=== PATIENT | female | born 1965 | race Caucasian/White ===

== ENCOUNTER 2020-10-13 08:46 | Emergency (ER) | payer SELFPAY ==
[2020-10-13 08:57] VITALS: BP 145/96; PULSE 89; RESP 18; TEMP 36.7; O2SAT 94; BMI 20.5
--- NOTE | 2020-10-13 08:57 | ED_ITS ---
HPI - General Adult General Chief complaint: Psychiatric Symptoms Stated complaint: Brought by [employer], mental health issues Time Seen by Provider: 10/13/20 08:56 Source: patient and police Mode of arrival: other (Police) Limitations: altered mental status History of Present Illness HPI narrative: Patient is a 54-year-old female who according to the police is relatively new to our local area. She is homeless. Was sleeping outside near a dog park when the received multiple calls this morning on her yelling and scre aming. They also stated that they received a call yesterday on her was very similar to today. The local police contacted the [employer] imbedded director of social work who came and saw the patient who deemed that she was gravely disabled and she was brought here to the emergency department. The director of social work stated that the patient did express that she was not suicidal and not homicidal. The patient told the director of social work that she was here in the local area in order to talk to the certified master safe technician about getting a boat. Her identification list her as having an aura can address in the patient does state she lived there for approximately 6 years however she does ?wonder ?she states that this morning she was yelling at someone because this individual ?let her dog shit on my stuff and did not clean it up. Review of Systems Constitutional Constitutional: Denies fever(s) Cardiovascular Cardiovascular: Denies chest pain and Denies dyspnea Respiratory Respiratory: Denies dyspnea Gastrointestinal Gastrointestinal: Denies abdominal pain Musculoskeletal Musculoskeletal: Reports arthralgias Integumentary/Breasts Skin/Breast: Denies rash Patient History Medical History History of fracture of right ankle Social History Smoking Status: Never smoker Exam Initial Vital Signs Initial Vital Signs: Vital Signs Temperature 98.1 F 10/13/20 08:57 Pulse Rate 89 10/13/20 08:57 Respiratory Rate 18 10/13/20 08:57 Blood Pressure 145/96 H 10/13/20 08:57 Pulse Oximetry 94 10/13/20 08:57 Const General: anxious, disheveled, No ill appearing and No intoxicated appearing Limitations: altered mental status HENMT Head: normal to inspection and normocephalic Eyes General: appearance normal, both eyes and all related structures Resp Effort & Inspection: normal respiratory effort Cardio Rate: regular rate Skin Lesions: no lesions Rashes: no rashes Neuro General: patient alert, patient awake and moves all extremities Gait: normal gait Extrem General: normal to inspection Psych Appearance: disheveled Speech and Movement: agitated, pressured speech, restless and speech not slurred Mood: anxious mood, manic mood and irritable mood Affect: irritable affect Attitude: cooperative and guarded Thought Process: flight of ideas, illogical and tangential Thought Content: suicidality Course Orders Ordered: ED Orders 10/13/20 08:58 Consult to [facility] - Credit Card Associate Stat EKG-12 Lead Stat 10/13/20 09:00 Urinalysis and Microscopic Stat Urine Drug Screen, Rapid Stat 10/13/20 09:01 Test Urine Stat 10/13/20 09:54 Acetaminophen Stat Complete Blood Count AUTO DIFF Stat Comprehensive Metabolic Panel Stat Ethanol (ETOH) Stat Lipase Stat Salicylate Stat Thyroid Stimulating Hormone Stat 10/13/20 10:30 COVID19 -Nasal swab/Pre-Proc Stat Vital Signs Vital signs: Vital Signs - 8 hr 10/13/20 08:57 Temperature 98.1 F Pulse Rate 89 Respiratory Rate 18 Blood Pressure 145/96 H Pulse Oximetry 94 Medical Decision Making Lab Data Result diagrams: 10/13/20 09:54 10/13/20 09:54 Labs: Lab Results 10/13/20 10/13/20 10/13/20 Range/Units 09:00 09:00 09:01 WBC (4.5-11.0) X10^3/uL RBC (4.0-5.2) X10^6/uL Hgb (12.0-16.0) g/dL Hct (36-46) % MCV (80-100) fL MCH (26-34) PG MCHC (30-36) % RDW (11.6-14.8) % Plt Count (150-400) X10^3/uL Neut % (Auto) (50-75) % Lymph % (Auto) (25-40) % [place] % (Auto) (3-14) % Eos % (Auto) (2-4) % Baso % (Auto) (0-2) % Neut # (Auto) (2724-5015) /uL Lymph # (Auto) (5860-2203) /uL [place] # (Auto) (0-900) /uL Eos # (Auto) (0-450) /uL Baso # (Auto) (0-100) /uL Sodium (137-145) mmol/L Potassium (3.4-5.1) mmol/L Chloride (98-107) mmol/L Carbon Dioxide (22-32) mmol/L BUN (7-17) mg/dL Creatinine (0.52-1.04) mg/dL Estimated GFR (>60) mL/min BUN/Creatinine Ratio (6-22) Glucose (70-100) mg/dL Calcium (8.4-10.2) mg/dL Total Bilirubin (0.2-1.3) mg/dL AST (14-36) IU/L ALT (<35) IU/L Alkaline Phosphatase (38-126) U/L Total Protein (6.3-8.2) g/dL Albumin (3.5-5.0) g/dL Globulin (1.7-4.1) g/dL Albumin/Globulin Ratio (1.0-2.8) Lipase (23-300) U/L TSH (0.47-4.68) uIU/mL Urine Color Yellow Urine Appearance Slightly cloudy Urine pH 7.0 (4.5-8.0) Ur Specific [place] 1.015 (1.000-1.035) Urine Protein Negative (Negative) Urine Glucose (UA) Negative (Negative) g/dL Urine Ketones Negative (NEGATIVE) Urine Occult Blood Negative (Negative) Urine Nitrate Negative (Negative) Urine Bilirubin Negative (NEGATIVE) Urine Urobilinogen 0.2 (0.2) E.U./dL Ur Leukocyte Esterase 2+ H (NEGATIVE) Urine RBC None seen (0-5/HPF) Urine WBC 1-5/hpf (0-5/HPF) Ur Squamous Epith Cells 10-30 /hpf H (0-5/HPF) Amorphous Sediment 3+ Urine Bacteria Moderate (10-30) H (None) Ur Culture Indicated? Cult not indicated Urine Test Negative (Negative) Salicylates (<20) mg/dL U Opiates 300ng/mL cut Negative (Negative) Ur Oxycodone Screen Negative (Negative) Urine Methadone Screen Negative (Negative) Acetaminophen (10-30) ug/mL Ur Barbiturates Screen Positive H (Negative) U Tricyclic Antidepress Negative (Negative) Ur Phencyclidine Scrn Negative (Negative) Ur Amphetamines Screen Negative (Negative) U Methamphetamines Scrn Negative (Negative) Ur MDMA Scrn (Ecstasy) Negative (Negative) U Benzodiazepines Scrn Negative (Negative) Urine Cocaine Screen Negative (Negative) U Marijuana (THC) Screen Positive H (Negative) Ethyl Alcohol ( - 10) mg/dL SARS-CoV-2 (PCR) (Negative) 10/13/20 10/13/20 10/13/20 Range/Units 09:54 09:54 09:54 WBC 5.0 (4.5-11.0) X10^3/uL RBC 4.64 (4.0-5.2) X10^6/uL Hgb 14.8 (12.0-16.0) g/dL Hct 43.3 (36-46) % MCV 93.4 (80-100) fL MCH 32.0 (26-34) PG MCHC 34.2 (30-36) % RDW 13.9 (11.6-14.8) % Plt Count 252 (150-400) X10^3/uL Neut % (Auto) 60.0 (50-75) % Lymph % (Auto) 25.1 (25-40) % [place] % (Auto) 12.3 (3-14) % Eos % (Auto) 1.3 L (2-4) % Baso % (Auto) 1.3 (0-2) % Neut # (Auto) 3000 (9168-9648) /uL Lymph # (Auto) 1300 (0860-8979) /uL [place] # (Auto) 600 (0-900) /uL Eos # (Auto) 100 (0-450) /uL Baso # (Auto) 100 (0-100) /uL Sodium 137 (137-145) mmol/L Potassium 4.1 (3.4-5.1) mmol/L Chloride 103 (98-107) mmol/L Carbon Dioxide 29 (22-32) mmol/L BUN 4 L (7-17) mg/dL Creatinine 0.53 (0.52-1.04) mg/dL Estimated GFR > 60.0 (>60) mL/min BUN/Creatinine Ratio 7.5 (6-22) Glucose 121 H (70-100) mg/dL Calcium 9.5 (8.4-10.2) mg/dL Total Bilirubin 0.5 (0.2-1.3) mg/dL AST 38 H (14-36) IU/L ALT 31 (<35) IU/L Alkaline Phosphatase 67 (38-126) U/L Total Protein 7.9 (6.3-8.2) g/dL Albumin 4.5 (3.5-5.0) g/dL Globulin 3.4 (1.7-4.1) g/dL Albumin/Globulin Ratio 1.3 (1.0-2.8) Lipase 47 (23-300) U/L TSH (0.47-4.68) uIU/mL Urine Color Urine Appearance Urine pH (4.5-8.0) Ur Specific [place] (1.000-1.035) Urine Protein (Negative) Urine Glucose (UA) (Negative) g/dL Urine Ketones (NEGATIVE) Urine Occult Blood (Negative) Urine Nitrate (Negative) Urine Bilirubin (NEGATIVE) Urine Urobilinogen (0.2) E.U./dL Ur Leukocyte Esterase (NEGATIVE) Urine RBC (0-5/HPF) Urine WBC (0-5/HPF) Ur Squamous Epith Cells (0-5/HPF) Amorphous Sediment Urine Bacteria (None) Ur Culture Indicated? Urine Test (Negative) Salicylates < 1.0 (<20) mg/dL U Opiates 300ng/mL cut (Negative) Ur Oxycodone Screen (Negative) Urine Methadone Screen (Negative) Acetaminophen < 10 L (10-30) ug/mL Ur Barbiturates Screen (Negative) U Tricyclic Antidepress (Negative) Ur Phencyclidine Scrn (Negative) Ur Amphetamines Screen (Negative) U Methamphetamines Scrn (Negative) Ur MDMA Scrn (Ecstasy) (Negative) U Benzodiazepines Scrn (Negative) Urine Cocaine Screen (Negative) U Marijuana (THC) Screen (Negative) Ethyl Alcohol < 10 ( - 10) mg/dL SARS-CoV-2 (PCR) (Negative) 10/13/20 10/13/20 Range/Units 09:54 10:30 WBC (4.5-11.0) X10^3/uL RBC (4.0-5.2) X10^6/uL Hgb (12.0-16.0) g/dL Hct (36-46) % MCV (80-100) fL MCH (26-34) PG MCHC (30-36) % RDW (11.6-14.8) % Plt Count (150-400) X10^3/uL Neut % (Auto) (50-75) % Lymph % (Auto) (25-40) % [place] % (Auto) (3-14) % Eos % (Auto) (2-4) % Baso % (Auto) (0-2) % Neut # (Auto) (8624-0488) /uL Lymph # (Auto) (6058-3052) /uL [place] # (Auto) (0-900) /uL Eos # (Auto) (0-450) /uL Baso # (Auto) (0-100) /uL Sodium (137-145) mmol/L Potassium (3.4-5.1) mmol/L Chloride (98-107) mmol/L Carbon Dioxide (22-32) mmol/L BUN (7-17) mg/dL Creatinine (0.52-1.04) mg/dL Estimated GFR (>60) mL/min BUN/Creatinine Ratio (6-22) Glucose (70-100) mg/dL Calcium (8.4-10.2) mg/dL Total Bilirubin (0.2-1.3) mg/dL AST (14-36) IU/L ALT (<35) IU/L Alkaline Phosphatase (38-126) U/L Total Protein (6.3-8.2) g/dL Albumin (3.5-5.0) g/dL Globulin (1.7-4.1) g/dL Albumin/Globulin Ratio (1.0-2.8) Lipase (23-300) U/L TSH 1.41 (0.47-4.68) uIU/mL Urine Color Urine Appearance Urine pH (4.5-8.0) Ur Specific [place] (1.000-1.035) Urine Protein (Negative) Urine Glucose (UA) (Negative) g/dL Urine Ketones (NEGATIVE) Urine Occult Blood (Negative) Urine Nitrate (Negative) Urine Bilirubin (NEGATIVE) Urine Urobilinogen (0.2) E.U./dL Ur Leukocyte Esterase (NEGATIVE) Urine RBC (0-5/HPF) Urine WBC (0-5/HPF) Ur Squamous Epith Cells (0-5/HPF) Amorphous Sediment Urine Bacteria (None) Ur Culture Indicated? Urine Test (Negative) Salicylates (<20) mg/dL U Opiates 300ng/mL cut (Negative) Ur Oxycodone Screen (Negative) Urine Methadone Screen (Negative) Acetaminophen (10-30) ug/mL Ur Barbiturates Screen (Negative) U Tricyclic Antidepress (Negative) Ur Phencyclidine Scrn (Negative) Ur Amphetamines Screen (Negative) U Methamphetamines Scrn (Negative) Ur MDMA Scrn (Ecstasy) (Negative) U Benzodiazepines Scrn (Negative) Urine Cocaine Screen (Negative) U Marijuana (THC) Screen (Negative) Ethyl Alcohol ( - 10) mg/dL SARS-CoV-2 (PCR) Negative (Negative) ECG Data Attestation: I personally reviewed and interpreted this ECG as follows: Prior ECG tracings: not available for review Interpretation: Sinus rhythm Ventricular rate is 65 Normal axis Normal QRS Normal QTC No ST T wave changes MDM Narrative Medical decision making narrative: Patient is alert and oriented to person and time and is also oriented to her view of the situation. She states that she was yelling and an individual this morning that let her dog use the bathroom either near or on her belongings and that is why she is yelling. She is very tangential. She did mention having a ?tracking device ?in the left side of her face. She specifically stated that she was not suicidal or homicidal and stated that she was not a danger to anyone else. She states that she does have chronic pain and uses marijuana and also ?mushrooms ?to help with these symptoms. She also makes mention that a doctor in [facility] told her that she only had 40% of her facial bones left ?. Patient is medically cleared. Will be seen by social work. For social work patient was alert and oriented x3. She is not clinically intoxicated and alcohol level is negative. Social work and an extensive discussion with the patient. He also discussed the case with DCR and there was no indication to involuntarily a admit the patient. She does have a flight of ideas and is very tangential however she is not manic. She is very easily redirectable. She has been cooperative. She declined the offer for a voluntary admission. Patient was also offered social resources for the area and she did take the information for [facility] and the crisis line. Will discharge with return precautions. Discharge Plan Departure Patient Disposition: Home Clinical Impression: Adjustment disorder Activity Restrictions/Additional Instructions: You can contact the [facility] crisis line at . Individuals at this number available at all times. You can also return to the emergency department if needed.
[2020-10-13 09:06] LABS: RBC Urine None Seen (0-5/HPF)
[2020-10-13 09:17] LABS: UR Morphine/Opiate cutoff 300 Negative (Negative); Ur Creatinine Normal (Normal); Ur Specific Gravity Normal (Normal); Urine Amphetamines Negative (Negative); Urine Barbiturates Positive (Negative); Urine Benzodiazepines Negative (Negative); Urine Cocaine Negative (Negative); Urine MDMA Negative (Negative); Urine Methadone Negative (Negative); Urine Methamphetamines Negative (Negative); Urine Oxycodone Negative (Negative); Urine Phencyclidine Negative (Negative); Urine Tetrahydrocannabinol Positive (Negative); Urine Tricyclic Antidepressant Negative (Negative); Urine pH Normal (Normal)
[2020-10-13 09:17] LABS: Pregnancy Test Urine Negative (Negative)
[2020-10-13 09:21] LABS: Appearance Urine UA Slightly Cloudy; Color Urine UA Yellow
[2020-10-13 09:22] LABS: Bilirubin Urine UA Negative (NEGATIVE); Glucose Urine UA NEGATIVE (Negative); Ketones Urine UA NEGATIVE (NEGATIVE); Leukocyte Esterase Urine UA 2+ (NEGATIVE); Nitrite Urine UA NEGATIVE (Negative); Occult Blood Urine UA Negative (Negative); Protein Urine UA Negative (Negative); Specific Gravity Urine UA 1.015 (1.000-1.035); Urobilinogen Urine UA 0.2 E.U./dL (0.2)
[2020-10-13 09:23] LABS: Amorphous Sediment Urine 3+; Bacteria Urine Moderate (10-30); Culture Indicated Urine Cult Not Indicated; Squamous Epithelial Cell Urine 10-30 /HPF (0-5/HPF); WBC Urine 1-5/HPF (0-5/HPF)
--- NOTE | 2020-10-13 09:29 | PC.NURSE ---
pt appears on edge or tense during assessment. pt explains she fired her previous dr in [place], [place] for not providing flexeril, benzos or hydrocodone. pt states the dr wanted her to take gabapentin or an antidepressants instead. pt states her family is in [place].
--- NOTE | 2020-10-13 09:31 | PC.NURSE ---
Patient is sitting in her room and drinking coffee. She appears to be talking to someone that is not there. At this time, she is calm and compliant.
--- NOTE | 2020-10-13 09:33 | PC.NURSE ---
pt states she is here, [place] to speak to a master glazier for a boat. pt states she started yelling this morning because a lady didn't picking machine operator after her dog.
--- NOTE | 2020-10-13 09:37 | PC.NURSE ---
pt yelling, and spit on the floor. i asked if she is ok, pt states that david just said no pain med and walked away, so no, i'm not ok
--- NOTE | 2020-10-13 09:37 | PC.NURSE ---
The doctor was in to speak with the patient. Patient is now pacing back and forth in her room and yelling, fucking bitch! She is becoming agitated and still talking to someone. There is no one in the room with the patient at this time.
--- NOTE | 2020-10-13 09:45 | PC.NURSE ---
pt mumbling to self, everyone hurts me when i asked if she's ok she said oh not you geraldo, that other esdras wont give me pain meds
--- NOTE | 2020-10-13 09:47 | PC.NURSE ---
Phlebotimist is in the room and attempting to draw blood. The patient is still agitated and yelling, but she appears to be compliant with the blood draw.
--- NOTE | 2020-10-13 10:03 | PC.NURSE ---
Patient is pacing around her room. She is agitated about the microchip that was apparently implanted in her face. She is yelling profanities and waving her arms while she argues with a person that is not in the room with her.
[2020-10-13 10:09] LABS: Add Manual Diff / Slide Review NO; Basophils Absolute Auto 100 /uL (0-100); Basophils Percent Auto 1.3 % (0-2); Eosinophils Absolute Auto 100 /uL (0-450); Eosinophils Percent Auto 1.3 % (2-4); Hematocrit 43.3 % (36-46); Hemoglobin 14.8 g/dL (12.0-16.0); Lymphocytes Absolute Auto 1300 /uL (1100-4500); Lymphocytes Percent Auto 25.1 % (25-40); Mean Corpuscular HGB Conc 34.2 % (30-36); Mean Corpuscular Volume 93.4 fL (80-100); Monocytes Absolute Auto 600 /uL (0-900); Monocytes Percent Auto 12.3 % (3-14); Neutrophils Absolute Auto 3000 /uL (1500-7000); Platelet Count 252 X10^3/uL (150-400); Red Blood Cell Count 4.64 X10^6/uL (4.0-5.2); Red Cell Distribution Width 13.9 % (11.6-14.8)
[2020-10-13 10:14] LABS: Acetaminophen < 10 ug/mL (10-30); Alanine Aminotransferase 31 IU/L (<35); Albumin 4.5 g/dL (3.5-5.0); Albumin Globulin Ratio 1.3 (1.0-2.8); Alkaline Phosphatase 67 U/L (38-126); Aspartate Aminotransferase 38 IU/L (14-36); BUN Creatinine Ratio 7.5 (6-22); Bilirubin Total 0.5 mg/dL (0.2-1.3); Blood Urea Nitrogen 4 mg/dL (7-17); Calcium 9.5 mg/dL (8.4-10.2); Carbon Dioxide 29 mmol/L (22-32); Chloride 103 mmol/L (98-107); Estimated Glomerular Filt Rate > 60.0 mL/min (>60); Globulin 3.4 g/dL (1.7-4.1); Glucose 121 mg/dL (70-100); HEMOLYSIS < 15 (0-50); Potassium 4.1 mmol/L (3.4-5.1); Sodium 137 mmol/L (137-145); Total Protein 7.9 g/dL (6.3-8.2)
[2020-10-13 10:51] LABS: Thyroid Stimulating Hormone 1.41 uIU/mL (0.47-4.68)
[2020-10-13 11:09] LABS: Ethanol (ETOH) < 10 mg/dL; Lipase 47 U/L (23-300); Salicylate < 1.0 mg/dL (<20)
--- NOTE | 2020-10-13 11:09 | PC.NURSE ---
Patient started to become agitated and started to pace the department to look for her belongings. Patient stated that she wanted to leave and go to senior care because she doesn't believe that we can provide her with what she needs at this hospital. She also stated that she needs to return the boy in her bag to his mother and tell her that he was misbehaving. RN and I spoke with patient and it turns out the patient wanted to charge her phone and have her bag of snacks. Physician agreed that it was appropriate for her charge her phone and have her bag of snacks in her room because it would help to de-escalate the patient. We offered the patient a cup of coffee and she is now sitting on the bed and arguing with someone that is not in the room with her. She is compliant at this time and agrees to talk to HOME COMFORT ADVISOR when he arrives.
--- NOTE | 2020-10-13 11:26 | PC.NURSE ---
Patient is still agitated. She is yelling profanities about being in the hospital.
--- NOTE | 2020-10-13 11:30 | PC.NURSE ---
Patient is sitting on her bed and yelling profanities. She is agitated but compliant at this time. She appears to be talking to someone that is not in the room with her.
--- NOTE | 2020-10-13 11:45 | PC.NURSE ---
Patient is sitting on her bed and drinking coffee. She is currently quiet and calm.
[2020-10-13 11:50] LABS: COVID19 -Nasal RAPID Negative (Negative)
--- NOTE | 2020-10-13 12:00 | PC.NURSE ---
Patient is pacing arund in her room. She appears to be arguing with someone that is not there.
--- NOTE | 2020-10-13 12:15 | PC.NURSE ---
DEPARTMENT SPECIALIST is in the room with the patient at this time.
--- NOTE | 2020-10-13 13:13 | CM.SWNOTE ---
[employer]ER OF [employer]UG[employer]E Assessment L[employer]ER [employer] - Chief Medical Director Assessment [employer] - Chief Medical Director Assessment Start: 10/13/20 12:53 Freq: Status: Active Protocol: Document 10/13/20 12:53 CARMENCITA (Rec: 10/13/20 13:13 CARMENCITA [id number]) L[employer]ER [employer]/Chief Medical Director Assessment Time Spent with Patient Start date 10/13/20 Visit Start Time 12:00 End date 10/13/20 Visit End Time 12:45 Total time Care Management spent on 45 patient visit-in minutes Mental Health Screening Include Onset, Duration, Intensity Presenting Problem Patient is brought to this ED by local law enforcement following an incident this AM in which she became verbally escalated toward a woman in a park who did not shredder picker after her dog. Precipitating Event(s) See above Patient Strengths Patient states she tries to leave every area she stays at light cleaner then when she arrived. Current Behavioral Health Provider(s) Patient states she had to Include Facility, Provider, Ph. # fire them all due to experiencing chronic pain and none providing pain medication . Psych. Hx Mental Health and Chemical Patient states she has OCD, Dependency denies other behavioral health concerns or diagnoses. Patient endorses use of THC and mushrooms- stating both are for pain relief. Patient denies any ETOH or other substance use. Family Hx of Behavioral Abuse None. Psychiatric Hospitalizations (date(s)/ None reported. location) Psychosocial information & Support Patient is a 54 y/o female who Systems is currently wandering and states she is trying to get to [place]. Patient states she is from [place], [place], and that her sister asked her to leave because patient was not addressing her health and mental health concerns. Patient states she has multiple adult children and has been traveling by rail for the past year. School/Work Patient receives SSI for her income. Legal Concerns Legal Matters - Outstanding Issues None current. Mental Status Orientation (Person/Place/Time) Oriented x3 Stated Mood I want to leave! Affect (Congruent with Mood?) agitated, labile, congruent with mood. Escalates at times during conversation but quickly de-escalates when asked/ easily re-directable. Thought Content - Specify/Describe Patient believes she has a Obsessions, Delusions, Hallucinations tracking chip in her jaw that was put there by [employer] in the 1980s. Patient appeared to be responding to internal stimuli when LECTURER OF PORTUGUESE entered room, and would occasionally would face the wall and converse with a stimuli not observable by LECTURER OF [employer]UG[employer]E. Patient does endorse being over-compulsive. Thought Processes (Tglxlyc-Omraejlo-Kzfx Tangential Ceqvzmya-Xxewkusv-Kjzpbxgtnn- Zwnipbeezzwosc-Urnnnrx-Peylscojogxl- Thought Blocking) Speech (Zpbbvz-Qrit-Hthybvx-Rapid-Soft- Loud, rapid. Loud-Pressured) Motor (Nlwdtv-Eqpxpulxz-Ndik-Other) Excessive. Insight (Rfyx-Ncdt-Fpyn/Limited) Poor Judgement (Dycv-Gojj-Kyhg/Limited) Fair-poor Impulse Control (Adequate-Impaired) Impaired. Verbally escalates and de-escalates quickly and easily. Memory (Wdobxzlvg-Sjwqln-[place], Intact for interview, not Impaired-Intact) formally assessed. Concentration (Intact-Impaired) Impaired Attention (Intact-Impaired) Impaired. Behavior (Appropriate-Inappropriate) Mostly appropriate. Patient does yell expletives loudly multiple times during assessment, but de-escalates and lowers voice quickly when asked. Risk Assessment Suicidal Ideation (Plan) No Homicidal Ideation (Plan) No Comment Patient denies SI/HI. Patient states she has no desire to hurt anyone else, and had only planned on yelling at the woman who did not shredder picker her dog's poop this morning. Patient explains that has no desire to hurt anyone else, and that she is experiencing too much physical pain due to arthritis too attempt something such as harming anyone else. Intervention Intervention LECTURER OF PORTUGUESE meets with patient. Patient is A+O x3, agitated/ labile, but de-escalates quickly and easily. Patient was brought here by police following an incident in which she became verbally escalated to another person in a park. Patient states she does not want to be in the hospital, would rather be in shelter, and wants to leave. Patient has been travelling for roughly 1 year, and reports she is planning to go to [facility] , and then to [place]. Patient denies SI/HI multiple times during the assessment. Patient states that she does sometimes yell, but has no intention to harm or physically assault anyone. LECTURER OF PORTUGUESE reviews with Dr. Meza. At this time, patient shows no insight into mental health aspect of current presentation , however, does not appear to be gravely disabled or present as an imminent harm to herself or others. Dr. Meza indicates agreement, and suggests that LECTURER OF [employer]UG[employer]E confirm with [facility] that patient does not meet criteria for grave disability. LECTURER OF PORTUG[employer]E calls [facility] and requests phone consult with DCR. Plan RA Plan LECTURER OF PORTUGUESE will complete phone consult with DCR. Plan for d/c pending outcome of consult with DCR. RADHIKA Almaguer
--- NOTE | 2020-10-13 13:41 | CM.SWNOTE ---
BOMB SQUAD OFFICER note BOMB SQUAD OFFICER recieves call from DCR Matilda. Matilda and BOMB SQUAD OFFICER review patient presentation. Matilda states agreement that patient does not meet criteria for grave disability or CHRISTAL. BOMB SQUAD OFFICER reviews this with Dr. Meza, who indicates understanding. BOMB SQUAD OFFICER enters room and speaks with patient. BOMB SQUAD OFFICER informs patient that she IH will not be pursing detainment at this time. Patient becomes notably more relaxed following receipt of this information. Patient explains that she she had a rough morning both in terms of physical pain and because a friend was unable to follow through on a favor. Patient explains her daughter was killed in late July and she declined to attend the because she did not want to see her daughter like that. Patient states she is able to get food, assisted, all basic needs met. BOMB SQUAD OFFICER offers phone number for mental health crisis line and patient accepts. BOMB SQUAD OFFICER requests that Dr. Meza put crisis phone number in d/c notes and Dr. Meza agrees. Pl: Patient to d/c RADHIKA Almaguer
[2020-10-13 13:58] VITALS: BP 136/75; PULSE 88; RESP 16; O2SAT 95
== END 2020-10-13 13:57 | disposition home or self-care (01) ==
PROVIDERS: Emergency Provider Emergency Medicine
DX: F43.20 Adjustment disorder, unspecified (principal); F12.929 Cannabis use, unspecified with intoxication, unspecified; R07.9 Chest pain, unspecified; Z20.822 Contact with and (suspected) exposure to COVID-19
CPT/HCPCS: 80053; 80305; 80320; 80329; 81001; 81025; 83690; 84443; 85025; 87635; 93005; 93010; 99284; C9803; G0480